=== PATIENT | female | born 1970 | race Caucasian/White ===

== ENCOUNTER 2022-07-21 11:03 | Day surgery (SDC) | payer BC ==
[~2022-07-21] VITALS: Ht 167.6 cm; Wt 62.5 kg
[2022-07-21] MEDS ORDERED: PANT40 (11:34)
[2022-07-21 13:11] VITALS: BP 92/82
== END 2022-07-21 13:10 | disposition home or self-care (01) ==
LOC: ORSCSDS 11:03
PROVIDERS: Internal Medicine Gastroenterology
PROC: 0DJD8ZZ Inspection of Lower Intestinal Tract, Via Natural or Artificial Opening Endoscopic (ICD-10-PCS; principal; 2022-07-21 12:30)
DX: K62.5 Hemorrhage of anus and rectum (principal); K64.4 Residual hemorrhoidal skin tags; Z79.899 Other long term (current) drug therapy
CPT/HCPCS: J2704; J7120